=== PATIENT | female | born 1995 | race Caucasian/White ===

== ENCOUNTER 2016-12-20 19:32 | Emergency (ER) | payer OTHER ==
--- NOTE | 2016-12-31 17:46 | ER ---
ADMIT: 12/20/2016 RM/LOC: [place] [facility] [place] [id number] [address] [id number] STELLA SHETTY [address] [place] [address] Emergency Room Report SEX: F AGE: 21 : 1995 DATE: 12/20/2016 ADDENDUM: This patient comes to the ER because she is having vomiting and diarrhea over the last 4 hours. She states that she ate at [employer] and since then has been violently vomiting and having diarrhea. She mentions that she recently came back from [facility] this last week. She at this time denies any abdominal pain. On physical exam, her abdomen is soft, nontender to palpation. She does not appear to be dehydrated. She was given Zofran here in the ER, which did help with the nausea. I wrote a prescription for Zofran. She was given Tylenol for fever, and we will have her push fluid. If she is not keeping fluids down tomorrow, she needs to return to the ER. Follow up with her primary. DIAGNOSES: 1. Vomiting. 2. Diarrhea. 3. Nausea. JAGDEEP Pisano / Mynor Siegel MD / alessial JOB #: [id number] CC: Mynor Siegel MD, Attending Physician Bryn Ya MD, Family Physician
== END 2016-12-20 21:33 | disposition home or self-care (01) ==
LOC: ER 19:32
DX: R11.2 Nausea with vomiting, unspecified (principal); R19.7 Diarrhea, unspecified; Z88.8 Allergy status to other drugs, medicaments and biological substances